=== PATIENT | female | born 1985 | race Asian ===

== ENCOUNTER 2019-05-28 05:35 | Inpatient (IN) | payer OTHER ==
[2019-05-28] MEDS ORDERED: OXYTOCIN 30 UNITS/LR 500 ML IV ×2 (06:30→15:30)
[2019-05-28] MEDS ORDERED: CARBOPROST 250 MCG INJ IM ×2 (06:30→15:30)
[2019-05-28] MEDS ORDERED: METHYLERGONOVINE 0.2 MG INJ IM ×2 (06:30→15:30)
[2019-05-28] MEDS ORDERED: MISOPROSTOL 200 MCG TAB PR ×2 (06:30→15:30)
[2019-05-28] MEDS: LACTATED RINGER'S 1,000 ML IV ×2 (07:38→14:10)
[2019-05-28 08:10] LABS: ADD MAN DIFF? NO
[2019-05-28 08:12] LABS: BASOPHILS % 0.2 % (0.0-2.0); EOSINOPHILS # 0.1 10^3/ul (0.0-0.5); EOSINOPHILS % 1.1 % (0.0-7.0); HEMATOCRIT 31.8 % (37.0-47.0); HEMOGLOBIN 10.3 g/dl (12.0-16.0); LYMPHOCYTES # 1.7 10^3/ul (0.8-2.9); LYMPHOCYTES % 21.3 % (15.0-51.0); MEAN CORPUSCULAR HEMOGLOBIN 26.8 pg (29.0-33.0); MEAN CORPUSCULAR HGB CONC 32.4 g/dl (32.0-37.0); MEAN CORPUSCULAR VOLUME 82.8 fl (82.0-101.0); MEAN PLATELET VOLUME 9.6 fl (7.4-10.4); MONOCYTE # 0.8 10^3/ul (0.3-0.9); MONOCYTES % 9.7 % (0.0-11.0); NEUTROPHIL # 5.4 10^3/ul (1.6-7.5); NEUTROPHILS % 67.1 % (39.0-77.0); PLATELET COUNT 252 10^3/UL (140-415); RED BLOOD COUNT 3.84 10^6/ul (4.20-5.40); RED CELL DISTRIBUTION WIDTH 13.9 % (11.5-14.5)
[2019-05-28 08:12] LABS: WHITE BLOOD COUNT 8.1 10^3/ul (4.8-10.8)
[2019-05-28 08:16] LABS: INR 0.88; PT RATIO 0.9
[2019-05-28 08:17] LABS: PARTIAL THROMBOPLASTIN TIME 26.3 Sec (23.0-35.0)
[2019-05-28 08:49] LABS: HEPATITIS B SURFACE ANTIGEN NEGATIVE (NEGATIVE)
[2019-05-28] MEDS ORDERED: morphine SULFATE/PF (10 MG/10 ML) INJ (09:17)
[2019-05-28] MEDS ORDERED: OXYTOCIN 30 UNITS/LR 500 ML BAG IV (09:17)
[2019-05-28] MEDS ORDERED: OXYTOCIN 10 UNIT INJ (09:17)
[2019-05-28] MEDS ORDERED: ONDANSETRON 4 MG INJ (09:17)
[2019-05-28] MEDS ORDERED: METOCLOPRAMIDE 10 MG INJ (10:00)
[2019-05-28] MEDS: OXYTOCIN 30 UNITS/LR 500 ML IV ×4 (10:40→23:17)
[2019-05-28] MEDS ORDERED: DIPHENHYDRAMINE 50 MG INJ IV (11:00)
[2019-05-28] MEDS ORDERED: morphine 2 MG INJ IV (11:00)
[2019-05-28] MEDS ORDERED: NALOXONE (0.4 MG/ML) INJ IV (11:00)
[2019-05-28] MEDS ORDERED: KETOROLAC 30 MG INJ IV (11:00)
[2019-05-28] MEDS ORDERED: ONDANSETRON 4 MG INJ IV (11:00)
[2019-05-28] MEDS: CEFAZOLIN 2 GM/50 ML (PMX) 50 ML IVPB (11:23)
[2019-05-28] MEDS ORDERED: OXYCODONE/ACETAMINOPHEN (5/325) TAB PO (15:30)
[2019-05-28] MEDS ORDERED: NACL 0.9% 3 ML SYG IV (15:30)
[2019-05-28 16:49] LABS: RAPID PLASMA REAGIN NONREACTIVE (NR)
[2019-05-28] MEDS: SENNA/DOCUSATE NA (8.6MG/50MG) TAB PO (21:00)
[2019-05-29 08:30] LABS: ADD MAN DIFF? NO
[2019-05-29 08:45] LABS: BASOPHILS % 0.2 % (0.0-2.0); EOSINOPHILS % 0.2 % (0.0-7.0); HEMATOCRIT 30.8 % (37.0-47.0); LYMPHOCYTES # 1.4 10^3/ul (0.8-2.9); LYMPHOCYTES % 10.9 % (15.0-51.0); MEAN CORPUSCULAR HGB CONC 32.5 g/dl (32.0-37.0); MEAN PLATELET VOLUME 9.6 fl (7.4-10.4); MONOCYTE # 0.8 10^3/ul (0.3-0.9); MONOCYTES % 6.5 % (0.0-11.0); NEUTROPHIL # 10.6 10^3/ul (1.6-7.5); NEUTROPHILS % 81.7 % (39.0-77.0); PLATELET COUNT 239 10^3/UL (140-415); RED BLOOD COUNT 3.71 10^6/ul (4.20-5.40); RED CELL DISTRIBUTION WIDTH 13.5 % (11.5-14.5)
[2019-05-29] MEDS: SENNA/DOCUSATE NA (8.6MG/50MG) TAB PO ×2 (08:58→21:53)
[2019-05-29] MEDS: IBUPROFEN 600 MG TAB PO ×2 (11:41→17:50)
[2019-05-29] MEDS: DIBUCAINE 1% 30 GM OINT TOP (21:53)
[2019-05-30] MEDS: IBUPROFEN 600 MG TAB PO ×5 (02:54→23:43)
[2019-05-30] MEDS: SENNA/DOCUSATE NA (8.6MG/50MG) TAB PO ×2 (09:25→21:18)
[2019-05-30] MEDS: LANOLIN HPA 1 PKT TOP (17:03)
[2019-05-31] MEDS: IBUPROFEN 600 MG TAB PO ×2 (05:23→12:18)
[2019-05-31 08:19] LABS: ADD MAN DIFF? NO
[2019-05-31 08:26] LABS: WHITE BLOOD COUNT 8.1 10^3/ul (4.8-10.8)
[2019-05-31 08:26] LABS: BASOPHILS % 0.2 % (0.0-2.0); EOSINOPHILS # 0.2 10^3/ul (0.0-0.5); EOSINOPHILS % 2.7 % (0.0-7.0); HEMATOCRIT 30.6 % (37.0-47.0); HEMOGLOBIN 9.7 g/dl (12.0-16.0); LYMPHOCYTES # 1.5 10^3/ul (0.8-2.9); LYMPHOCYTES % 18.8 % (15.0-51.0); MEAN CORPUSCULAR HEMOGLOBIN 26.3 pg (29.0-33.0); MEAN CORPUSCULAR HGB CONC 31.7 g/dl (32.0-37.0); MEAN CORPUSCULAR VOLUME 82.9 fl (82.0-101.0); MEAN PLATELET VOLUME 9.3 fl (7.4-10.4); MONOCYTE # 0.6 10^3/ul (0.3-0.9); MONOCYTES % 7.9 % (0.0-11.0); NEUTROPHIL # 5.6 10^3/ul (1.6-7.5); NEUTROPHILS % 69.7 % (39.0-77.0); PLATELET COUNT 250 10^3/UL (140-415); RED BLOOD COUNT 3.69 10^6/ul (4.20-5.40); RED CELL DISTRIBUTION WIDTH 13.9 % (11.5-14.5)
[2019-05-31] MEDS: DIPHTH/TET/ACEL PERTUSS (ADULT) 0.5 ML VIAL IM* (09:00)
[2019-05-31] MEDS: FERROUS SULFATE (EC) 325 MG TAB PO (10:33)
[2019-05-31] MEDS: ASCORBIC ACID 500 MG TAB PO (10:33)
[2019-05-31] MEDS: SENNA/DOCUSATE NA (8.6MG/50MG) TAB PO (10:34)
== END 2019-05-31 14:50 | disposition home or self-care (01) | DRG 787 ==
LOC: L-D 05:35 → PP1 14:49
PROVIDERS: Obstetrics & Gynecology
PROC: 10D00Z1 Extraction of Products of Conception, Low, Open Approach (ICD-10-PCS; principal; 2019-05-28 09:00)
DX: O34.211 Maternal care for low transverse scar from previous cesarean delivery (principal); D62 Acute posthemorrhagic anemia; O90.81 Anemia of the puerperium; Z3A.39 39 weeks gestation of pregnancy; Z37.0 Single live birth
CPT/HCPCS: 85025; 85610; 85730; 86592; 86850; 86900; 86901; 87340; 99464